=== PATIENT | female | born 1965 | race Caucasian/White ===

== ENCOUNTER 2023-02-13 10:24 | Day surgery (SDC) | payer OTHER, SELFPAY ==
--- NOTE | 2023-02-12 09:39 | HO.ANESPROP2 ---
Documented by User: Sandy Polo NP 02/12/23 09:43 HPI - Anesthesia Eval Consult details Narrative: 57yo F for Upper Endoscopy [facility] Past Medical History Medical History (Updated 02/12/23 @ 09:40 by Sandy Polo NP) GERD (gastroesophageal reflux disease) Surgical History Surgical History (Updated 02/13/23 @ 11:07 by Jenna Rosas RN) H/O colonoscopy H/O endoscopy History of appendectomy Hx of appendectomy [place] teeth extracted Social History Social History (Updated 02/13/23 @ 11:06 by Jenna Rosas, RN) Patient Tobacco Use Status: Former Tobacco user Are you DNR?: No Advance Directives: No Advance Directives Information Provided: Yes Meds Allergies Allergy/AdvReac Type Severity Reaction Status Date / Time No Known Allergies Allergy Unverified 07/19/20 15:50 [No Known Allergies*] Home Medications Medication Instructions Recorded Confirmed Last Taken Type estradiol 0.01% (0.1 mg/gram) vaginal 02/12/23 02/12/23 Unknown History vaginal cream omeprazole 20 mg capsule,delayed 20 mg PO DAILY 02/12/23 02/12/23 02/12/23 History release Exam Exam Date and Time: February 12, 2023 0939 Assessment and Plan Assessment Anesthesia Assessment: Chart Reviewed Documented by User: Roseanna Li MD 02/13/23 11:58 [facility] Past Medical History Medical History (Updated 02/12/23 @ 09:40 by Sandy Polo NP) GERD (gastroesophageal reflux disease) Family History Family history of problems with anesthesia: No Surgical History Surgical History (Updated 02/13/23 @ 11:07 by Jenna Rosas RN) H/O colonoscopy H/O endoscopy History of appendectomy Hx of appendectomy [place] teeth extracted History of Problems with Anesthesia: No Social History Social History (Updated 02/13/23 @ 11:06 by Jenna Rosas RN) Patient Tobacco Use Status: Former Tobacco user Are you DNR?: No Advance Directives: No Advance Directives Information Provided: Yes Meds Allergies Allergy/AdvReac Type Severity Reaction Status Date / Time No Known Allergies Allergy Unverified 07/19/20 15:50 [No Known Allergies*] Home Medications Medication Instructions Recorded Confirmed Last Taken Type estradiol 0.01% (0.1 mg/gram) vaginal 02/12/23 02/12/23 Unknown History vaginal cream omeprazole 20 mg capsule,delayed 20 mg PO DAILY 02/12/23 02/12/23 02/12/23 History release Exam Airway Mallampati Class: II TM Dist: >3cm Neck ROM: Full Heart: rrr Lungs: cta Assessment and Plan Assessment Anesthesia Assessment: Anesthesia Plan Discussed Final Anesthetic Review Family History of Problems with Anesthesia: No History of Problems with Anesthesia: No NPO: Yes ASA Class: II Final Preanesthetic Review: No Changes in Pt Med Stat, Meds/Allgs Chart Reviewed and Consent Obtained/Reviewed Patient Risk: Intermediate Procedure Risk: Intermediate Anesthetic Plan Anesthetic Plan: MAC: Disposition: Standard PACU
[2023-02-13 06:14] VITALS: BMI 29.7
[2023-02-13 10:51] VITALS: BP 104/45; PULSE 65; RESP 20; TEMP 36.1; O2SAT 98
[2023-02-13] MEDS: Lactated Ringers 1,000 ML 100 ML IVCONT (11:13)
[2023-02-13 12:26] VITALS: BP 115/49; PULSE 81; RESP 16; TEMP 36.1; O2SAT 95
--- NOTE | 2023-02-13 12:29 | PM.OP ---
Brief Operative Note Date of Service: 02/13/23 Pre-op diagnosis: GERD Post-op diagnosis: other (Hiatal hernia, GERD) Procedure: EGD with conchita Surgeon: Jonathan Nino Anesthesia: MAC Was an Direct Sales Professional used for this Procedure?: No Estimated blood loss (mL): 2.0 Pathology: other (A. EG Junction at 36cm) Condition: stable Disposition: PACU
[2023-02-13 12:42] VITALS: BP 115/61; PULSE 70; RESP 16; TEMP 36.1; O2SAT 97
--- NOTE | 2023-02-13 23:26 | OP_ITS ---
DATE OF SERVICE: 02/13/2023 SURGEON: Jonathan Nino MD INDICATIONS: The patient presents for evaluation of gastroesophageal reflux and globus. Full consent has been obtained from her for this, including risks of bleeding and perforation. PREOPERATIVE DIAGNOSIS: Gastroesophageal reflux and globus. POSTOPERATIVE DIAGNOSIS: PROCEDURE PERFORMED: Esophagogastroduodenoscopy with biopsies. ESTIMATED BLOOD LOSS: COMPLICATIONS: ANESTHESIA: Monitored anesthesia care. ASSISTANTS: SPECIMENS: POSTOPERATIVE DIAGNOSES: 1. Gastroesophageal reflux and globus. 2. Small hiatal hernia. DESCRIPTION OF PROCEDURE: The patient was placed in the left lateral decubitus position. The Olympus video gastroscope was passed in the posterior oropharynx and upper esophagus under direct vision. The scope was passed slowly to the distal esophagus. The gastroesophageal junction appeared at 36 cm. There is a very minimal irregularity, but no evidence of any esophagitis nor any definitive evidence of Juarez's mucosa. The scope entered the stomach. There is a small hiatal hernia. The scope was advanced to the pylorus and the duodenum was cannulated to the descending portion. The duodenum including the bulb appeared normal without mass or ulceration. The scope was withdrawn back in the stomach. The gastric antrum and body appeared normal with good peristalsis. The scope was retroflexed visualizing the proximal stomach carefully which appeared normal, without any sign of mass or ulceration. The scope was straightened. There is good peristalsis. The scope was withdrawn back in the esophagus. Biopsies were obtained at the EG junction at 36 cm. Proximal to this, the esophageal mucosa appeared normal. The scope was withdrawn from the patient. She tolerated the procedure well and she was returned to the recovery area in stable condition. IMPRESSION: Small hiatal hernia, gastroesophageal reflux. PLAN: The results of the biopsies will be checked. She does report that she has been doing better on omeprazole in regard to the reflux and globus sensation. I did advise her that she could continue that on a daily and terminal gauger basis or just use it as needed. She would otherwise be seen on a p.r.n. basis and will be due for a followup colonoscopy for further screening in 2023. MD ARCHIE King/MARLA / [id number] [facility]
== END 2023-02-13 13:15 | disposition home or self-care (01) ==
PROVIDERS: PCP Internal Medicine; Visit Provider Internal Medicine
PROC: 0DJ08ZZ Inspection of Upper Intestinal Tract, Via Natural or Artificial Opening Endoscopic (ICD-10-PCS; CPT 43235; principal; 2023-02-13 11:30)
DX: K21.9 Gastro-esophageal reflux disease without esophagitis (principal); R09.89 Other specified symptoms and signs involving the circulatory and respiratory systems; K44.9 Diaphragmatic hernia without obstruction or gangrene; Z79.899 Other long term (current) drug therapy; Z80.0 Family history of malignant neoplasm of digestive organs; Z87.891 Personal history of nicotine dependence
CPT/HCPCS: 43239; 88305

== ENCOUNTER 2025-01-11 10:02 | Day surgery (SDC) | payer OTHER, SELFPAY ==
[2025-01-09 13:59] VITALS: BMI 27.9
--- NOTE | 2025-01-10 09:05 | HO.ANESPROP2 ---
Documented by User: Sandy Polo NP 01/10/25 09:06 HPI - Anesthesia Eval Consult details Narrative: 59yo F for Colonoscopy [facility] Past Medical History Medical History Hiatal hernia GERD (gastroesophageal reflux disease) Family History Family history of problems with anesthesia: No Surgical History Surgical History [place] teeth extracted Hx of appendectomy H/O colonoscopy H/O endoscopy (~01/2023) History of appendectomy History of Problems with Anesthesia: No Social History Social History Patient Tobacco Use Status: Former Tobacco user Advance Directives: No Advance Directives Information Provided: Yes Meds Allergies Allergy/AdvReac Type Severity Reaction Status Date / Time No Known Allergies Allergy Verified 01/11/25 10:21 [No Known Allergies*] Home Medications ?Medication ?Instructions ?Recorded ?Confirmed ?Last Taken ?Type estradiol 0.01% (0.1 mg/gram) vaginal 02/12/23 02/12/23 Unknown History vaginal cream omeprazole 20 mg capsule,delayed 20 mg PO DAILY 02/12/23 02/12/23 02/12/23 History release Fish Oil 01/09/25 Unknown History iron 01/09/25 Unknown History tretinoin 0.05 % topical cream appl topical 01/09/25 Unknown History turmeric 01/09/25 12/21/24 History Exam Height,Weight and Vital Signs: Height 5 ft 7 in Weight 80.739 kg Assessment and Plan Assessment Anesthesia Assessment: Chart Reviewed Final Anesthetic Review Family History of Problems with Anesthesia: No History of Problems with Anesthesia: No Documented by User: Kimberly Klein MD 01/11/25 10:22 [facility] Past Medical History Medical History Hiatal hernia GERD (gastroesophageal reflux disease) Surgical History Surgical History [place] teeth extracted Hx of appendectomy H/O colonoscopy H/O endoscopy (~01/2023) History of appendectomy Social History Social History Patient Tobacco Use Status: Former Tobacco user Advance Directives: No Advance Directives Information Provided: Yes Meds Allergies Allergy/AdvReac Type Severity Reaction Status Date / Time No Known Allergies Allergy Verified 01/11/25 10:21 [No Known Allergies*] Home Medications ?Medication ?Instructions ?Recorded ?Confirmed ?Last Taken ?Type estradiol 0.01% (0.1 mg/gram) vaginal 02/12/23 02/12/23 Unknown History vaginal cream omeprazole 20 mg capsule,delayed 20 mg PO DAILY 02/12/23 02/12/23 02/12/23 History release Fish Oil 01/09/25 Unknown History iron 01/09/25 Unknown History tretinoin 0.05 % topical cream appl topical 01/09/25 Unknown History turmeric 01/09/25 12/21/24 History Exam Airway Mallampati Class: II TM Dist: >3cm Neck ROM: Full Heart: rrr Lungs: cta Assessment and Plan Assessment Anesthesia Assessment: Anesthesia Plan Discussed Final Anesthetic Review NPO: Yes ASA Class: II Final Preanesthetic Review: No Changes in Pt Med Stat, Meds/Allgs Chart Reviewed, Consent Obtained/Reviewed and Anes Risks/Benef Reviewed Patient Risk: Low Procedure Risk: Low Anesthetic Plan Anesthetic Plan: MAC: Disposition: Standard PACU
[2025-01-11 10:23] VITALS: BMI 28.1
[2025-01-11 10:32] VITALS: BP 127/67; PULSE 73; RESP 16; TEMP 36.2; O2SAT 96
[2025-01-11] MEDS: Lactated Ringers 1,000 ML 100 ML IVCONT (10:47)
--- NOTE | 2025-01-11 10:50 | PC.NURSE ---
Vasovagal after IV insertion. HOB down, cold compress to forehead, c/ slight nausea. Symptoms resolved within 1 minute ( BP 89/49, HR 61.) Repeat VS [id number]. States she feels fine. Will continue to monitor
[2025-01-11 12:16] VITALS: BP 104/53; PULSE 63; RESP 16; TEMP 36.3; O2SAT 98
--- NOTE | 2025-01-11 12:21 | PM.OP ---
Brief Operative Note Date of Service: 01/11/25 Pre-op diagnosis: Screening Post-op diagnosis: other (Diverticulosis) Procedure: Colonoscopy to the cecum and TI Surgeon: Jonathan Nino MD Anesthesia: MAC Was an Negotiations Director used for this Procedure?: No Estimated blood loss (mL): 0 Pathology: none sent Condition: stable Disposition: PACU
[2025-01-11 12:31] VITALS: BP 112/49; PULSE 70; RESP 18; TEMP 36.6; O2SAT 99
--- NOTE | 2025-01-11 21:40 | OP_ITS ---
DATE OF SERVICE: 01/11/2025 SURGEON: Jonathan Nino MD INDICATIONS: The patient presents for evaluation of personal history of tubular adenomas of the colon and need for colorectal cancer screening. Full consent has been obtained from her for this, including risks of bleeding and perforation. PREOPERATIVE DIAGNOSIS: POSTOPERATIVE DIAGNOSIS: PROCEDURE PERFORMED: Colonoscopy to the cecum and terminal ileum. ESTIMATED BLOOD LOSS: COMPLICATIONS: ANESTHESIA: Monitored anesthesia care. ASSISTANTS: SPECIMENS: PREOPERATIVE DIAGNOSES: Colorectal cancer screening and personal history of tubular adenoma of the colon. POSTOPERATIVE DIAGNOSES: Colorectal cancer screening, personal history of tubular adenoma of the colon, diverticulosis, and internal hemorrhoids. DESCRIPTION OF PROCEDURE: The patient was placed in the left lateral decubitus position. The digital rectal exam revealed no abnormalities. The Olympus video pediatric colonoscope was then entered into the rectum and advanced easily to the cecum. Once in the cecum, I did identify normal-appearing cecal pouch with appendiceal orifice and a normal-appearing ileocecal valve. The terminal ileum was cannulated and appeared normal. The scope was withdrawn back in the colon. The entire cecum and ileocecal valve appeared normal. The scope was slowly withdrawn assessing all mucosal surfaces carefully. Preparation was excellent. I did not visualize any sign of polyps, colitis, nor angiodysplasias. There was a mild amount of sigmoid diverticulosis. In the rectum, scope was retroflexed, visualizing internal hemorrhoids, but no other pathology. The rectal mucosa appeared normal. The scope was straightened and withdrawn from the patient. She tolerated the procedure well and was returned to the recovery area in stable condition. IMPRESSION: 1. Mild diverticulosis. 2. Internal hemorrhoids. PLAN: Given her previous history, I would recommend a followup colonoscopy in 5 years for further screening and surveillance. She will, otherwise, see me on a p.r.n. basis. MD ARCHIE King/MARLA / [id number]
== END 2025-01-11 12:49 | disposition home or self-care (01) ==
PROVIDERS: PCP Nurse Practitioner Family; Visit Provider Internal Medicine
PROC: 0DJD8ZZ Inspection of Lower Intestinal Tract, Via Natural or Artificial Opening Endoscopic (ICD-10-PCS; CPT 45378; principal; 2025-01-11 11:20)
DX: Z12.11 Encounter for screening for malignant neoplasm of colon (principal); Z86.0101 Personal history of adenomatous and serrated colon polyps; Z83.719 Family history of colon polyps, unspecified; K57.30 Diverticulosis of large intestine without perforation or abscess without bleeding; K64.8 Other hemorrhoids; K21.9 Gastro-esophageal reflux disease without esophagitis; Z80.0 Family history of malignant neoplasm of digestive organs; Z90.49 Acquired absence of other specified parts of digestive tract; Z85.42 Personal history of malignant neoplasm of other parts of uterus; Z79.899 Other long term (current) drug therapy; Z87.891 Personal history of nicotine dependence
CPT/HCPCS: 45378; J2704